=== PATIENT | female | born 1980 | race Caucasian/White ===

== ENCOUNTER 2018-02-21 12:23 | Emergency (ER) | payer MEDICAID, OTHER ==
[2018-02-21] MEDS: METOCLOPRAMIDE 10 MG TAB PO (14:15)
[2018-02-21 14:21] LABS: ADD MAN DIFF? NO
[2018-02-21 14:25] LABS: BASOPHILS % 0.4 % (0.0-2.0); EOSINOPHILS # 0.1 10^3/ul (0.0-0.5); EOSINOPHILS % 0.7 % (0.0-7.0); HEMATOCRIT 39.1 % (37.0-47.0); HEMOGLOBIN 13.1 g/dl (12.0-16.0); LYMPHOCYTES # 1.4 10^3/ul (0.8-2.9); LYMPHOCYTES % 13.2 % (15.0-51.0); MEAN CORPUSCULAR HEMOGLOBIN 28.8 pg (29.0-33.0); MEAN CORPUSCULAR HGB CONC 33.5 g/dl (32.0-37.0); MEAN CORPUSCULAR VOLUME 85.9 fl (82.0-101.0); MEAN PLATELET VOLUME 9.7 fl (7.4-10.4); MONOCYTE # 0.6 10^3/ul (0.3-0.9); MONOCYTES % 5.4 % (0.0-11.0); NEUTROPHIL # 8.3 10^3/ul (1.6-7.5); NEUTROPHILS % 79.8 % (39.0-77.0); PLATELET COUNT 249 10^3/UL (140-415); RED BLOOD COUNT 4.55 10^6/ul (4.20-5.40); RED CELL DISTRIBUTION WIDTH 12.7 % (11.5-14.5)
[2018-02-21 14:25] LABS: WHITE BLOOD COUNT 10.4 10^3/ul (4.8-10.8)
[2018-02-21 15:09] LABS: ADD UMIC YES; UR ASCORBIC ACID NEGATIVE (NEGATIVE); UR BACTERIA FEW /HPF (NONE SEEN); UR BILIRUBIN (Dip) NEGATIVE (NEGATIVE); UR BLOOD (Dip) 3+ mg/dL (NEGATIVE); UR CLARITY SLIGHTLY CLOUDY (CLEAR); UR COLOR STRAW (YELLOW); UR GLUCOSE (Dip) NEGATIVE (NEGATIVE); UR KETONES (Dip) NEGATIVE (NEGATIVE); UR LEUKOCYTE ESTERASE (Dip) 3+ Leu/ul (NEGATIVE); UR NITRITE (Dip) NEGATIVE (NEGATIVE); UR RBC 0 /HPF (0-5); UR SPECIFIC GRAVITY (Dip) 1.001 (1.003-1.030); UR TOTAL PROTEIN (Dip) NEGATIVE (NEGATIVE); UR UROBILINOGEN (Dip) NEGATIVE (NEGATIVE); UR WBC 24 /HPF (0-5)
== END 2018-02-21 15:56 | disposition home or self-care (01) ==
LOC: FTE 12:23
DX: O20.9 Hemorrhage in early pregnancy, unspecified (principal); O23.41 Unspecified infection of urinary tract in pregnancy, first trimester; Z3A.01 Less than 8 weeks gestation of pregnancy
CPT/HCPCS: 36415; 76801; 76817; 81001; 84702; 85025; 86900; 86901; 99284-25

== ENCOUNTER 2018-10-11 22:06 | Outpatient (CLI) | payer MEDICAID | END 2018-10-11 23:45 | disposition home or self-care (01) | LOC: OBT 22:06 → L-D 22:07 | DX: O46.8X3 Other antepartum hemorrhage, third trimester (principal); O09.513 Supervision of elderly primigravida, third trimester; Z3A.39 39 weeks gestation of pregnancy | CPT/HCPCS: 76815; 76818 ==

== ENCOUNTER 2018-10-12 05:08 | Inpatient (IN) | payer MEDICAID ==
[2018-10-12] MEDS ORDERED: CARBOPROST 250 MCG INJ IM (05:30)
[2018-10-12] MEDS ORDERED: METHYLERGONOVINE 0.2 MG INJ IM (05:30)
[2018-10-12] MEDS ORDERED: CEFAZOLIN 2 GM/50 ML (PMX) 50 ML IVPB (05:30)
[2018-10-12] MEDS ORDERED: OXYTOCIN 30 UNITS/LR 500 ML IV (05:30)
[2018-10-12] MEDS: LACTATED RINGER'S 1,000 ML IV ×4 (05:48→21:09)
[2018-10-12 06:56] LABS: ADD MAN DIFF? NO
[2018-10-12] MEDS ORDERED: OXYTOCIN 30 UNITS/LR 500 ML BAG IV (07:00)
[2018-10-12 07:07] LABS: BASOPHIL # 0.1 10^3/ul (0.0-0.1); BASOPHILS % 0.6 % (0.0-2.0); EOSINOPHILS # 0.3 10^3/ul (0.0-0.5); EOSINOPHILS % 2.9 % (0.0-7.0); HEMOGLOBIN 11.8 g/dl (12.0-16.0); LYMPHOCYTES # 1.8 10^3/ul (0.8-2.9); MEAN CORPUSCULAR HEMOGLOBIN 30.5 pg (29.0-33.0); MEAN CORPUSCULAR HGB CONC 33.7 g/dl (32.0-37.0); MEAN CORPUSCULAR VOLUME 90.4 fl (82.0-101.0); MEAN PLATELET VOLUME 10.2 fl (7.4-10.4); MONOCYTE # 0.6 10^3/ul (0.3-0.9); MONOCYTES % 5.6 % (0.0-11.0); NEUTROPHIL # 7.1 10^3/ul (1.6-7.5); NEUTROPHILS % 71.1 % (39.0-77.0); PLATELET COUNT 171 10^3/UL (140-415); RED BLOOD COUNT 3.87 10^6/ul (4.20-5.40); RED CELL DISTRIBUTION WIDTH 13.7 % (11.5-14.5)
[2018-10-12 07:26] LABS: INR 0.85; PROTIME 11.7 Sec (11.9-14.9); PT RATIO 0.9
[2018-10-12 07:27] LABS: PARTIAL THROMBOPLASTIN TIME 26.9 Sec (23.0-35.0)
[2018-10-12] MEDS ORDERED: NALOXONE (0.4 MG/ML) INJ IV (07:30)
[2018-10-12] MEDS ORDERED: HYDROmorphONE 1 MG/5 ML IV SYRINGE IV ×2 (07:30)
[2018-10-12] MEDS ORDERED: FENTAnyl 50 MCG/ML VIAL IV ×2 (07:30)
[2018-10-12] MEDS ORDERED: METOCLOPRAMIDE 10 MG INJ IV (07:30)
[2018-10-12] MEDS ORDERED: KETOROLAC 30 MG INJ IV (07:30)
[2018-10-12] MEDS ORDERED: HYDROmorphONE 0.5 MG/0.5 ML SYG IV (07:30)
[2018-10-12] MEDS ORDERED: ALBUTEROL 0.083% (NEB) 2.5 MG/3 ML AMP HHN (07:30)
[2018-10-12] MEDS ORDERED: ONDANSETRON 4 MG INJ IV ×2 (07:30)
[2018-10-12] MEDS ORDERED: DIPHENHYDRAMINE 50 MG INJ IV ×2 (07:30)
[2018-10-12] MEDS ORDERED: morphine SULFATE/PF (10 MG/10 ML) INJ (07:42)
[2018-10-12] MEDS ORDERED: PHENYLephrine (100 MCG/ML) 5ML SYG ×5 (07:52→08:39)
[2018-10-12 07:55] LABS: HEPATITIS B SURFACE ANTIGEN NEGATIVE (NEGATIVE)
[2018-10-12] MEDS: MISOPROSTOL 200 MCG TAB PR (08:58)
[2018-10-12] MEDS: OXYTOCIN 30 UNITS/LR 500 ML IV (08:58)
[2018-10-12] MEDS ORDERED: MISOPROSTOL 200 MCG TAB PR (09:30)
[2018-10-12] MEDS ORDERED: NA PHOSPHATE/BIPHOS 133 ML ENEMA PR (09:30)
[2018-10-12] MEDS: IBUPROFEN 600 MG TAB PO ×2 (12:00→17:38)
[2018-10-12 16:35] LABS: RAPID PLASMA REAGIN NONREACTIVE (NR)
[2018-10-12] MEDS: KETOROLAC 30 MG INJ IV (16:52)
[2018-10-12] MEDS: SENNA/DOCUSATE NA (8.6MG/50MG) TAB PO (21:30)
[2018-10-13] MEDS: KETOROLAC 30 MG INJ IV ×2 (01:45→08:11)
[2018-10-13] MEDS: LACTATED RINGER'S 1,000 ML IV ×3 (05:21→21:14)
[2018-10-13] MEDS: IBUPROFEN 600 MG TAB PO ×4 (06:00→17:55)
[2018-10-13 09:01] LABS: ADD MAN DIFF? NO
[2018-10-13 09:07] LABS: BASOPHILS % 0.3 % (0.0-2.0); EOSINOPHILS # 0.1 10^3/ul (0.0-0.5); EOSINOPHILS % 1.2 % (0.0-7.0); HEMATOCRIT 29.1 % (37.0-47.0); HEMOGLOBIN 9.7 g/dl (12.0-16.0); LYMPHOCYTES # 1.4 10^3/ul (0.8-2.9); LYMPHOCYTES % 12.5 % (15.0-51.0); MEAN CORPUSCULAR HEMOGLOBIN 30.3 pg (29.0-33.0); MEAN CORPUSCULAR HGB CONC 33.3 g/dl (32.0-37.0); MEAN CORPUSCULAR VOLUME 90.9 fl (82.0-101.0); MONOCYTE # 0.7 10^3/ul (0.3-0.9); MONOCYTES % 6.5 % (0.0-11.0); NEUTROPHIL # 8.6 10^3/ul (1.6-7.5); NEUTROPHILS % 78.8 % (39.0-77.0); PLATELET COUNT 148 10^3/UL (140-415); RED CELL DISTRIBUTION WIDTH 13.8 % (11.5-14.5)
[2018-10-13 09:07] LABS: WHITE BLOOD COUNT 10.9 10^3/ul (4.8-10.8)
[2018-10-13] MEDS: SENNA/DOCUSATE NA (8.6MG/50MG) TAB PO ×3 (09:09→20:48)
[2018-10-13] MEDS: OXYCODONE/ACETAMINOPHEN (5/325) TAB PO ×3 (11:37→20:49)
[2018-10-14] MEDS: IBUPROFEN 600 MG TAB PO ×5 (00:43→23:23)
[2018-10-14] MEDS: LACTATED RINGER'S 1,000 ML IV (05:14)
[2018-10-14] MEDS: SENNA/DOCUSATE NA (8.6MG/50MG) TAB PO ×2 (08:46→20:59)
[2018-10-14] MEDS: OXYCODONE/ACETAMINOPHEN (5/325) TAB PO ×2 (10:55→15:40)
[2018-10-14] MEDS: LANOLIN 7 GM TUBE TOP (21:07)
[2018-10-15] MEDS: IBUPROFEN 600 MG TAB PO ×2 (06:19→11:30)
[2018-10-15] MEDS: MAGNESIUM HYDROXIDE 30ML CUP PO (08:45)
[2018-10-15] MEDS: SENNA/DOCUSATE NA (8.6MG/50MG) TAB PO (08:45)
[2018-10-15] MEDS ORDERED: MEASLES,MUMPS,RUBELLA VACCINE INJ SC* (09:00)
[2018-10-15] MEDS: DIPHTH/TET/ACEL PERTUSS (ADULT) 0.5 ML VIAL IM* (12:35)
[2018-10-15] MEDS: OXYCODONE/ACETAMINOPHEN (5/325) TAB PO (14:55)
== END 2018-10-15 16:50 | disposition home or self-care (01) | DRG 787 ==
LOC: L-D 05:08 → PP1 11:25
PROVIDERS: Obstetrics & Gynecology
PROC: 10D00Z1 Extraction of Products of Conception, Low, Open Approach (ICD-10-PCS; principal; 2018-10-12)
PROC: 0UB00ZZ Excision of Right Ovary, Open Approach (ICD-10-PCS; 2018-10-12)
DX: O32.1XX0 Maternal care for breech presentation, not applicable or unspecified (principal); D62 Acute posthemorrhagic anemia; O34.83 Maternal care for other abnormalities of pelvic organs, third trimester; N83.201 Unspecified ovarian cyst, right side; O99.214 Obesity complicating childbirth; E66.01 Morbid (severe) obesity due to excess calories; O90.81 Anemia of the puerperium; G89.18 Other acute postprocedural pain; Z3A.39 39 weeks gestation of pregnancy; Z37.0 Single live birth; Z23 Encounter for immunization
CPT/HCPCS: 85025; 85610; 85730; 86592; 86850; 86900; 86901; 87340; 88305; 90686; 90715; 99464